=== PATIENT | male | born 1965 | race Caucasian/White ===

== ENCOUNTER 2025-07-26 20:38 | Outpatient (BNV) | payer MEDICARE, MEDICAID, SELFPAY | END 2025-08-08 13:57 | PROVIDERS: Admitting Provider Psychiatry & Neurology Forensic Psychiatry; Visit Provider Student in an Organized Health Care Education/Training Program | DX: I82.512 Chronic embolism and thrombosis of left femoral vein (principal); I82.532 Chronic embolism and thrombosis of left popliteal vein | CPT/HCPCS: 93971 ==

== ENCOUNTER 2025-07-26 20:38 | Outpatient (BNV) | payer MEDICARE, MEDICAID, SELFPAY | END 2025-08-01 19:32 | PROVIDERS: Admitting Provider Psychiatry & Neurology Forensic Psychiatry; Visit Provider Internal Medicine Cardiovascular Disease | DX: Z13.6 Encounter for screening for cardiovascular disorders (principal) | CPT/HCPCS: 93010 ==

== ENCOUNTER → 2025-07-26 20:38 | Outpatient (BNV) | payer MEDICARE, MEDICAID, SELFPAY | PROVIDERS: Admitting Provider Psychiatry & Neurology Forensic Psychiatry; Visit Provider Nurse Practitioner Family | DX: F20.9 Schizophrenia, unspecified (principal); F03.90 Unspecified dementia, unspecified severity, without behavioral disturbance, psychotic disturbance, mood disturbance, and anxiety | CPT/HCPCS: 99231; 99232 ==

== ENCOUNTER → 2025-07-26 20:38 | Outpatient (BNV) | payer MEDICARE, MEDICAID, SELFPAY | PROVIDERS: Admitting Provider Psychiatry & Neurology Forensic Psychiatry; Visit Provider Psychiatry & Neurology Psychiatry | DX: F20.0 Paranoid schizophrenia (principal); I82.409 Acute embolism and thrombosis of unspecified deep veins of unspecified lower extremity; R41.9 Unspecified symptoms and signs involving cognitive functions and awareness | CPT/HCPCS: 99231 ==

== ENCOUNTER → 2025-07-26 20:38 | Outpatient (BNV) | payer MEDICARE, MEDICAID, SELFPAY | PROVIDERS: Admitting Provider Psychiatry & Neurology Forensic Psychiatry; Visit Provider Nurse Practitioner Family | DX: I82.409 Acute embolism and thrombosis of unspecified deep veins of unspecified lower extremity (principal) | CPT/HCPCS: 99221 ==